=== PATIENT | female | born 1945 | race Two or more races ===

== ENCOUNTER 2017-03-24 10:14 | Outpatient (CLI) | payer OTHER | END 2017-03-24 15:43 | disposition home or self-care (01) | LOC: TOM 10:14 | DX: J44.1 Chronic obstructive pulmonary disease with (acute) exacerbation (principal); J43.8 Other emphysema; I10 Essential (primary) hypertension; H26.9 Unspecified cataract ==

== ENCOUNTER 2017-05-05 07:14 | Outpatient (CLI) | payer OTHER | END 2017-05-05 07:18 | disposition home or self-care (01) | LOC: NUCLEAR 07:14 | DX: I11.9 Hypertensive heart disease without heart failure (principal); I25.10 Atherosclerotic heart disease of native coronary artery without angina pectoris | CPT/HCPCS: 78452; 93017; A9500; J1250 ==

== ENCOUNTER 2017-05-27 08:00 | Outpatient (CLI) | payer OTHER | END 2017-05-27 10:00 | disposition home or self-care (01) | LOC: RAD 08:00 → LAB 11:12 | DX: R68.84 Jaw pain (principal) ==

== ENCOUNTER → 2017-06-13 | Outpatient (CLI) | payer OTHER | END | disposition home or self-care (01) | LOC: LAB 08:12 | DX: I10 Essential (primary) hypertension (principal); Z12.9 Encounter for screening for malignant neoplasm, site unspecified; Z12.6 Encounter for screening for malignant neoplasm of bladder; Z12.11 Encounter for screening for malignant neoplasm of colon; E78.2 Mixed hyperlipidemia; N39.0 Urinary tract infection, site not specified ==

== ENCOUNTER 2017-06-14 07:53 | Outpatient (CLI) | payer OTHER | END 2017-06-14 07:58 | disposition home or self-care (01) | LOC: LAB 07:53 | DX: I10 Essential (primary) hypertension (principal); Z12.6 Encounter for screening for malignant neoplasm of bladder; Z12.9 Encounter for screening for malignant neoplasm, site unspecified; N39.0 Urinary tract infection, site not specified; Z12.11 Encounter for screening for malignant neoplasm of colon; E78.2 Mixed hyperlipidemia ==

== ENCOUNTER 2017-10-17 12:46 | Outpatient (CLI) | payer OTHER | END 2017-10-17 12:49 | disposition home or self-care (01) | LOC: RAD 12:46 | DX: Z12.31 Encounter for screening mammogram for malignant neoplasm of breast (principal); Z87.898 Personal history of other specified conditions; M15.0 Primary generalized (osteo)arthritis ==

== ENCOUNTER 2018-02-14 12:02 | Outpatient (CLI) | payer OTHER | END 2018-02-14 12:39 | disposition home or self-care (01) | LOC: MRI 12:02 | DX: M19.041 Primary osteoarthritis, right hand (principal) | CPT/HCPCS: 73218 ==

== ENCOUNTER 2018-03-07 09:46 | Outpatient (CLI) | payer OTHER | END 2018-03-07 16:32 | disposition home or self-care (01) | LOC: NUCLEAR 09:46 | DX: M81.0 Age-related osteoporosis without current pathological fracture (principal) ==

== ENCOUNTER 2018-10-08 09:30 | Outpatient (CLI) | payer OTHER | END 2018-10-08 09:42 | disposition home or self-care (01) | LOC: RAD 09:30 | DX: M19.041 Primary osteoarthritis, right hand (principal); M19.042 Primary osteoarthritis, left hand ==

== ENCOUNTER 2018-11-14 09:16 | Outpatient (CLI) | payer OTHER | END 2018-11-14 09:19 | disposition home or self-care (01) | LOC: RAD 09:16 | DX: M17.0 Bilateral primary osteoarthritis of knee (principal); Z96.652 Presence of left artificial knee joint ==

== ENCOUNTER 2018-11-26 08:36 | Outpatient (CLI) | payer OTHER | END 2018-11-26 08:39 | disposition home or self-care (01) | LOC: RAD 08:36 | DX: J20.8 Acute bronchitis due to other specified organisms (principal); J44.1 Chronic obstructive pulmonary disease with (acute) exacerbation; I10 Essential (primary) hypertension ==

== ENCOUNTER → 2019-12-16 | Outpatient (CLI) | payer OTHER | END | disposition home or self-care (01) | LOC: MAMO-SONO 12-05 12:45 | PROVIDERS: ATTEND Internal Medicine Cardiovascular Disease | DX: Z12.31 Encounter for screening mammogram for malignant neoplasm of breast (principal); E04.2 Nontoxic multinodular goiter ==

== ENCOUNTER 2020-04-14 11:56 | Outpatient (CLI) | payer OTHER | END 2020-04-14 12:04 | disposition home or self-care (01) | LOC: RAD 11:56 | PROVIDERS: ATTEND Physical Medicine & Rehabilitation | DX: M11.262 Other chondrocalcinosis, left knee (principal); M17.12 Unilateral primary osteoarthritis, left knee; M18.52 Other unilateral secondary osteoarthritis of first carpometacarpal joint, left hand ==

== ENCOUNTER 2020-04-27 09:20 | Outpatient (CLI) | payer OTHER | END 2020-04-27 09:24 | disposition home or self-care (01) | LOC: NUCLEAR 09:20 | PROVIDERS: ATTEND Internal Medicine Rheumatology | DX: M81.0 Age-related osteoporosis without current pathological fracture (principal) ==

== ENCOUNTER 2020-09-23 09:08 | Outpatient (CLI) | payer OTHER | END 2020-09-23 09:12 | disposition home or self-care (01) | LOC: RAD 09:08 | PROVIDERS: ATTEND Internal Medicine Gastroenterology | DX: R10.84 Generalized abdominal pain (principal); I10 Essential (primary) hypertension; R05 Cough; R16.0 Hepatomegaly, not elsewhere classified; N95.1 Menopausal and female climacteric states; D25.9 Leiomyoma of uterus, unspecified ==

== ENCOUNTER 2020-11-06 14:09 | Outpatient (CLI) | payer OTHER | END 2020-11-06 14:18 | disposition home or self-care (01) | LOC: RAD 14:09 | PROVIDERS: ATTEND Physical Medicine & Rehabilitation | DX: M19.042 Primary osteoarthritis, left hand (principal); M17.12 Unilateral primary osteoarthritis, left knee ==

== ENCOUNTER 2021-06-23 08:00 | Outpatient (CLI) | payer OTHER | END 2021-06-23 08:30 | disposition home or self-care (01) | LOC: PPH VACUNA 08:00 | PROVIDERS: ATTEND Emergency Medicine Pediatric Emergency Medicine | DX: Z23 Encounter for immunization (principal) ==

== ENCOUNTER 2021-09-07 12:26 | Outpatient (CLI) | payer OTHER | END 2021-09-07 12:34 | disposition home or self-care (01) | LOC: MRI 12:26 | PROVIDERS: ATTEND Physical Medicine & Rehabilitation | DX: M17.12 Unilateral primary osteoarthritis, left knee (principal); M25.562 Pain in left knee | CPT/HCPCS: 73718 ==

== ENCOUNTER 2021-09-30 09:46 | Outpatient (CLI) | payer OTHER | END 2021-09-30 09:59 | disposition home or self-care (01) | LOC: MAMO-SONO 09:46 | PROVIDERS: ATTEND Internal Medicine Cardiovascular Disease | DX: Z12.31 Encounter for screening mammogram for malignant neoplasm of breast (principal) ==

== ENCOUNTER 2022-02-24 01:19 | Outpatient (CLI) | payer OTHER | END 2022-02-24 01:29 | disposition home or self-care (01) | LOC: PPH VACUNA 01:19 | PROVIDERS: ATTEND Emergency Medicine Pediatric Emergency Medicine | DX: Z23 Encounter for immunization (principal) ==

== ENCOUNTER 2022-04-16 11:31 | Outpatient (CLI) | payer OTHER | END 2022-04-16 11:34 | disposition home or self-care (01) | LOC: RAD 11:31 | PROVIDERS: ATTEND Physical Medicine & Rehabilitation | DX: M17.12 Unilateral primary osteoarthritis, left knee (principal); M65.331 Trigger finger, right middle finger ==

== ENCOUNTER 2022-06-15 09:56 | Outpatient (CLI) | payer OTHER | END 2022-06-15 09:57 | disposition home or self-care (01) | LOC: NUCLEAR 09:56 | PROVIDERS: ATTEND Internal Medicine Endocrinology, Diabetes & Metabolism | DX: M81.0 Age-related osteoporosis without current pathological fracture (principal) ==

== ENCOUNTER 2022-06-20 08:56 | Outpatient (CLI) | payer OTHER | END 2022-06-20 08:58 | disposition home or self-care (01) | LOC: SONOGRAMA 08:56 | PROVIDERS: ATTEND Internal Medicine Endocrinology, Diabetes & Metabolism | DX: E04.1 Nontoxic single thyroid nodule (principal) ==

== ENCOUNTER 2022-09-30 09:57 | Outpatient (CLI) | payer OTHER | END 2022-09-30 09:59 | disposition home or self-care (01) | LOC: RAD 09:57 | PROVIDERS: ATTEND Obstetrics & Gynecology | DX: Z01.811 Encounter for preprocedural respiratory examination (principal); I10 Essential (primary) hypertension; Z79.890 Hormone replacement therapy; N93.8 Other specified abnormal uterine and vaginal bleeding ==

== ENCOUNTER 2023-03-16 11:03 | Outpatient (CLI) | payer OTHER ==
[~2023-03-16 11:03] MED LIST: ATORVASTATIN CA10 MG; ATORVASTATIN CA20 MG PO; COZAAR50 MG PO; DICLOFENAC POTA50 MG; ESTRADIOL-NORE1 EACH; LORAZEPAM0.5 MG; MEDROXYPROGESTE10 MG; NASAL MIST126 ML NASAL; RESTORIL30 M1 PO; SERT PO; SERTRALINE HCL100 MG; SINGULAIR10 MG PO; TANDEM PLUS CA1 EACH PO; TRAM1TAB98 PO
== END 2023-03-16 11:07 | disposition home or self-care (01) ==
LOC: RAD 11:03
PROVIDERS: ATTEND Orthopaedic Surgery Adult Reconstructive Orthopaedic Surgery
DX: M16.11 Unilateral primary osteoarthritis, right hip (principal); M17.12 Unilateral primary osteoarthritis, left knee; Z96.651 Presence of right artificial knee joint

== ENCOUNTER 2023-04-14 08:53 | Outpatient (CLI) | payer OTHER | END 2023-04-14 08:55 | disposition home or self-care (01) | LOC: RAD 08:53 | PROVIDERS: ATTEND Orthopaedic Surgery Adult Reconstructive Orthopaedic Surgery | DX: I11.9 Hypertensive heart disease without heart failure (principal) ==

== ENCOUNTER 2023-10-19 08:16 | Outpatient (CLI) | payer OTHER | END 2023-10-19 08:18 | disposition home or self-care (01) | LOC: MAMO-SONO 08:16 | PROVIDERS: ATTEND Internal Medicine Cardiovascular Disease | DX: Z12.11 Encounter for screening for malignant neoplasm of colon (principal); Z12.31 Encounter for screening mammogram for malignant neoplasm of breast ==

== ENCOUNTER 2023-10-24 11:53 | Outpatient (CLI) | payer OTHER | END 2023-10-24 11:59 | disposition home or self-care (01) | LOC: RAD 11:53 | PROVIDERS: ATTEND Psychiatry & Neurology Neurology | DX: M77.31 Calcaneal spur, right foot (principal) ==

== ENCOUNTER 2024-02-20 08:07 | Outpatient (CLI) | payer OTHER | END 2024-02-20 08:18 | disposition home or self-care (01) | LOC: RAD 08:07 | PROVIDERS: ATTEND Internal Medicine Cardiovascular Disease | DX: Z96.652 Presence of left artificial knee joint (principal); M25.522 Pain in left elbow; M25.561 Pain in right knee ==

== ENCOUNTER 2024-03-10 14:50 | Emergency (ER) | payer OTHER ==
[~2024-03-10] VITALS: Ht 170.2 cm; Wt 68.9 kg
[2024-03-10 16:10] VITALS: BP 119/61; O2SAT 96
[2024-03-10] MEDS ORDERED: HYOSCYAMINE SULFATE 0.125 MG TAB.SUBL ONE (16:55)
[2024-03-10] MEDS ORDERED: ONDANSETRON HCL 2 MG/ML VIAL ONE (16:55)
[2024-03-10] MEDS ORDERED: 0.9 % SODIUM CHLORIDE 1,000 ML IV SCH (17:00)
[2024-03-10] MEDS ORDERED: ONDANSETRON HCL 2 MG/ML VIAL IV ONE (17:00)
[2024-03-10] MEDS ORDERED: HYOSCYAMINE SULFATE 0.125 MG TAB.SUBL SL ONE (17:00)
[2024-03-10 17:32] LABS: HEMATOCRIT 37.7 % (36.0-45.00); HEMOGLOBIN 13.1 g/dL (12.0-15.00); MEAN CELL VOLUME 94.8 fL (80.00-100.00); MEAN CORPUSCULAR HGB CONC 34.8 g/dl (32.0-36.0); PLATELET COUNT 198 K/uL (150-450); RED BLOOD COUNT 3.98 M/uL (4.00-6.00); RED CELL DISTRIBUTION WIDTH 13.9 % (11.5-14.5)
[2024-03-10 18:38] LABS: ALBUMIN 3.3 gm/dL (3.4-5.0); BILIRUBIN TOTAL 0.79 mg/dL (0.3-1.2); CALCIUM 8.3 mg/dL (8.5-10.1); CREATININE SERUM 0.89 mg/dL (0.55-1.02); GFR 61.18; GLOBULINA 2.8 G/DL (2.4-3.5); POTASSIUM 4.38 mEq/L (3.5-5.1); TOTAL PROTEIN 6.1 gm/dL (6.4-8.2)
[2024-03-10 19:02] LABS: PH,URINE 5.5 (5.0-8.0); URINE APPEARANCE Clear; URINE BILIRRUBIN Negative (NEGATIVE); URINE BLOOD Moderate; URINE COLOR Yellow; URINE GLUCOSE Negative (NEGATIVE); URINE KETONE Trace (NEGATIVE); URINE LEUKOCYTE Small; URINE NITRATE Negative; URINE PROTEIN Trace (NEGATIVE); URINE UROBILINOGEN 0.2 E.U./dl
[2024-03-10 19:05] LABS: URINE BACTERIA 1680.3 uL (0.0-1933); URINE EPITHELIAL CELLS 37.4 uL (0.0-38.8); URINE RBC 35.7 uL (0.0-20.8); URINE WBC 7.1 uL (0.0-23.2)
[2024-03-10 19:27] LABS: URINE CAST 0.58 uL (0.0-1.40)
[2024-03-10] MEDS ORDERED: LOPERAMIDE HCL 2 MG CAPSULE PO ONE ×2 (21:22→21:30)
== END 2024-03-10 22:43 | disposition home or self-care (01) ==
LOC: ER 14:52
PROVIDERS: Emergency Medicine
DX: K52.9 Noninfective gastroenteritis and colitis, unspecified (principal); E86.0 Dehydration
CPT/HCPCS: 36415; 96365; 96366; 99282; J2405; J7030

== ENCOUNTER → 2024-04-11 | Outpatient (CLI) | payer OTHER | END | disposition home or self-care (01) | LOC: MAMO-SONO 10:32 | PROVIDERS: ATTEND Obstetrics & Gynecology | DX: N60.11 Diffuse cystic mastopathy of right breast (principal); N60.12 Diffuse cystic mastopathy of left breast; Z12.31 Encounter for screening mammogram for malignant neoplasm of breast; I10 Essential (primary) hypertension; Z79.890 Hormone replacement therapy; E89.41 Symptomatic postprocedural ovarian failure; S63.8X2A Sprain of other part of left wrist and hand, initial encounter ==

== ENCOUNTER 2024-06-03 16:10 | Outpatient (CLI) | payer OTHER | END 2024-06-03 16:16 | disposition home or self-care (01) | LOC: RAD 16:10 | PROVIDERS: ATTEND Physical Medicine & Rehabilitation | DX: M54.6 Pain in thoracic spine (principal); S20.212A Contusion of left front wall of thorax, initial encounter; W19.XXXA Unspecified fall, initial encounter ==

== ENCOUNTER 2024-09-06 10:34 | Outpatient (CLI) | payer OTHER | END 2024-09-06 10:35 | disposition home or self-care (01) | LOC: NUCLEAR 10:34 | PROVIDERS: ATTEND Physical Medicine & Rehabilitation | DX: M81.0 Age-related osteoporosis without current pathological fracture (principal) ==

== ENCOUNTER 2024-10-29 15:50 | Outpatient (CLI) | payer OTHER | END 2024-10-29 15:54 | disposition home or self-care (01) | LOC: RAD 15:50 | PROVIDERS: ATTEND Orthopaedic Surgery Adult Reconstructive Orthopaedic Surgery | DX: M17.11 Unilateral primary osteoarthritis, right knee (principal); Z96.652 Presence of left artificial knee joint ==